=== PATIENT | male | born 1985 | race Caucasian/White ===

== ENCOUNTER 2021-02-01 02:46 | Emergency (ER) | payer MEDICAID ==
[~2021-02-01] VITALS: Ht 185.4 cm; Wt 154.6 kg
[2021-02-01 02:54] VITALS: BP 141/82
[2021-02-01] MEDS ORDERED: AMOX-117 PO (04:18)
[2021-02-01] MEDS ORDERED: HYDR-3965 PO (04:19)
== END 2021-02-01 05:43 | disposition home or self-care (01) ==
LOC: ER 02:47
DX: K02.9 Dental caries, unspecified (principal); F17.200 Nicotine dependence, unspecified, uncomplicated; Z79.899 Other long term (current) drug therapy; Z88.8 Allergy status to other drugs, medicaments and biological substances
CPT/HCPCS: 99283

== ENCOUNTER 2023-02-05 09:25 | Emergency (ER) | payer MEDICAID ==
[~2023-02-05] VITALS: Ht 185.4 cm; Wt 152.2 kg
[2023-02-05 10:20] VITALS: BP 131/80; PULSE 75; RESP 18; TEMP 98; O2SAT 96
== END 2023-02-05 11:41 | disposition home or self-care (01) ==
LOC: ER 09:26
DX: S93.401A Sprain of unspecified ligament of right ankle, initial encounter (principal); Z88.8 Allergy status to other drugs, medicaments and biological substances; Z79.899 Other long term (current) drug therapy; W22.8XXA Striking against or struck by other objects, initial encounter; Y93.89 Activity, other specified; Y92.89 Other specified places as the place of occurrence of the external cause; Y99.8 Other external cause status
CPT/HCPCS: 73610; 99283